=== PATIENT | female | born 1990 ===

== ENCOUNTER → 2023-09-23 12:31 | Outpatient (REF) | payer OTHER, SELFPAY ==
[2023-09-27 09:58] LABS: HPV, High Risk Not Detected; HPV, High Risk Source Anal
== END ==
LOC: CLAB 12:31
PROVIDERS: ATTENDING PHYSICIAN Physician Assistant
DX: Z86.19 Personal history of other infectious and parasitic diseases (principal)
CPT/HCPCS: 87624; 88112